=== PATIENT | female | born 1975 ===

== ENCOUNTER 2016-08-07 13:05 | Emergency (ER) | payer BC, MEDICAID, OTHER ==
[2016-08-07 13:10] VITALS: TEMP 98.5; BMI 36.6
[2016-08-07] MEDS ORDERED: Albuterol-Ipratrop 3 mg / 0.5 (3 ml) UD IH STA (13:29)
[2016-08-07] MEDS ORDERED: Sodium Chloride 0.9% 1,000 ML IV SCH (13:30)
[2016-08-07 13:49] LABS: URINE BILIRUBIN NEGATIVE (NEGATIVE); URINE BLOOD NEGATIVE (NEGATIVE); URINE GLUCOSE (UA) NEGATIVE (NEGATIVE); URINE KETONE NEGATIVE (NEGATIVE); URINE LEUKOCYTE ESTERASE NEGATIVE Leu/uL (NEGATIVE); URINE PROTEIN 30 mg/dL (<30 mg/dL)
[2016-08-07 13:51] LABS: URINE APPEARANCE CLEAR (CLEAR); URINE COLOR YELLOW (YELLOW)
[2016-08-07 13:55] LABS: ADD MANUAL DIFF? NO
[2016-08-07 13:59] LABS: BASO # 0.01 K/mm3 (0.0-2.0); BASO % 0.3 % (0.0-3.0); EOS % 0.7 % (1.5-5.0); GRAN % 36.8 % (50.0-68.0); HEMATOCRIT 40.4 % (36.0-48.0); LYMPH # 1.4 (1.2-3.4); LYMPH % 48.2 % (22.0-35.0); MEAN CELL VOLUME 85.6 fL (80.0-105.0); MEAN CORPUSCULAR HEMOGLOBIN 29.2 pg (25.0-35.0); MEAN CORPUSCULAR HGB CONC 34.2 g/dl (31.0-37.0); MEAN PLATELET VOLUME 8.7 fl (7.0-11.0); MONO # 0.4 (0.1-0.6); PLATELET COUNT 220 10^3/uL (120.0-450.0); RED CELL DISTRIBUTION WIDTH 13.1 % (11.5-14.5)
[2016-08-07 14:07] LABS: URINE AMORPHOUS SEDIMENT FEW; URINE BACTERIA MANY (NEG); URINE RBC 0 - 2 /hpf (0-2)
[2016-08-07 14:11] LABS: ALB/GLOB RATIO 1.1 (1.1-1.8); ALKALINE PHOSPHATASE 63 U/L (38-133); ALT/SGPT 72 U/L (7-56); AST/SGOT 59 U/L (15-39); BILIRUBIN,TOTAL 0.6 mg/dL (0.2-1.3); BLOOD UREA NITROGEN 11 mg/dL (7-21); CALCIUM 9.1 mg/dL (8.4-10.5); CARBON DIOXIDE 29 mmol/L (21-33); CHLORIDE 99 mmol/L (98-107); GFR AFRICAN-AMERICAN > 60; GLUCOSE,RANDOM 80 mg/dL (70-110); POTASSIUM 3.7 mmol/L (3.6-5.0); SODIUM 141 mmol/L (132-148); TOTAL PROTEIN 8.4 g/dL (5.8-8.3)
--- NOTE | 2016-08-07 14:12 | ED PDOC ---
Arrival/HPI - General Chief Complaint: Flu-like Symptoms Time Seen by Provider: 08/07/16 13:15 Historian: Patient - History of Present Illness Narrative History of Present Illness (Text): 08/07/16 13:20 A 40 year old female, whose past medical history includes arthritis and thyroid disease, presents to the emergency department complaining of generalized body aches, a productive cough, intermittent subjective fevers and a headache for the past 5 days. Patient reports yesterday she thought she was getting better but last night she developed chest tightness associated with shortness of breath. She states she felt as though she had "sputum stuck in her chest and just could not get it out." She notes this morning upon waking she still felt slightly short of breath, lightheaded, nausea and mild abdominal pain. Abdominal pain resolved after having a bowel movement but the other symptoms persist and therefore she wanted to come to the emergency department to get evaluated. Patient says she has mild throat burning when she coughs, some pain of the left side of the throat and has not been eating or drinking well but she denies any vomiting, diarrhea, or other complaints at this time. Patient mentions all three of her children are at home sick with the flu. PMD: Dr. Georges Time/Duration: Other (5 days) Symptom Onset: Sudden Symptom Course: Unchanged Quality: Other Activities at Onset: Rest Modifying Factors (Text): sick contacts Context: Home Past Medical History - Provider Review Nursing Documentation Reviewed: Yes - Infectious Disease Hx of Infectious Diseases: None - Endocrine/Metabolic Hx Hypothyroidism: Yes - Musculoskeletal/Rheumatological Hx Rheumatoid Arthritis: Yes - Psychiatric Hx Substance Use: No - Anesthesia Hx Anesthesia: No - Suicidal Assessment Feels Threatened In Home Enviroment: No Family/Social History - Physician Review Nursing Documentation Reviewed: Yes Family/Social History: Unknown Family HX Smoking Status: Never Smoked Hx Alcohol Use: No Hx Substance Use: No Allergies/Home Meds Allergies/Adverse Reactions: Allergies No Known Allergies Allergy (Unverified 08/23/12 15:38) Review of Systems - Review of Systems Constitutional: Fevers Eyes: absent: Vision Changes ENT: Sinus Congestion. absent: Rhinorrhea Respiratory: SOB, Cough Cardiovascular: Chest Pain Gastrointestinal: Abdominal Pain, Nausea, Appetite Changes. absent: Diarrhea, Vomiting Genitourinary Female: absent: Urine Output Changes Musculoskeletal: Myalgias. absent: Back Pain, Neck Pain Skin: absent: Rash Neurological: Headache, Other (lightheaded) Endocrine: absent: Polyuria Psychiatric: absent: Depression Physical Exam - Physical Exam Narrative Physical Exam (Text): Head: Atraumatic. Normocephalic. Eyes: PERRL. EOMI. Conjunctivae are not pale. ENT: Mucous membranes are moist and intact. Oropharynx is clear and symmetric. Mild erythema to the right ear canal. No pharyngeal erythema or exudates. Neck: Supple. Full ROM. No JVD. Small 1cm palpable lymph node to the left submandibular region, not firm or fluctuant. Neck is supple Cardiovascular: Regular rate. Regular rhythm. No murmurs, rubs, or gallops. Distal pulses are 2+ and symmetric. Pulmonary/Chest: No evidence of respiratory distress. Mild bilateral wheezing with rhonchi at the bases. No rales. Abdominal: Soft and non-distended. There is no tenderness. No rebound, guarding, or rigidity. No organomegaly. Good bowel sounds. Back: No CVA tenderness. Extremities: No edema. No cyanosis. No clubbing. Full range of motion in all extremities. No calf tenderness. Skin: Skin is warm and dry. No petechiae. No purpura. Neurological: Alert, awake, and oriented to person, place, time, and situation. Normal speech. Motor and sensory intact. No meningeal signs. Psychiatric: Good eye contact. Normal interaction, affect, and behavior. Vital Signs Reviewed: Yes Vital Signs Temp Pulse Resp BP Pulse Ox 08/07/16 16:45 73 14 118/75 97 08/07/16 15:06 77 16 117/79 100 08/07/16 13:10 98.5 F 75 18 134/74 99 Temperature: Afebrile Blood Pressure: Normal Pulse: Regular Respiratory Rate: Normal Appearance: Positive for: Non-Toxic, Comfortable Pain Distress: None Mental Status: Positive for: Alert and Oriented X 3 Medical Decision Making ED Course and Treatment: 08/07/16 13:20 Impression: A 40 year old female with flu like symptoms. Patient has sick contacts at home. Examination reveal patient is wheezing bilateral with some rhonchi. Patient also has mild erythema to the right ear and a swollen lymph node to the leftsub mandibular region. Differential Diagnosis include but are not limited to: Influenza vs. Viral Illness vs. Bronchitis vs. Pneumonia Plan: Will obtain Chest X-ray, lab work, urinalysis and Infleunza serology to rule out viral illness vs. influenza vs. bronchitis vs. pneumonia. Will give patient Duoneb and IV fluids for shortness of breath and lightheadedness. Prior Visits: Notes and results from previous visits were reviewed. The patient last presented to the emergency department on 06/25/16 for evaluation of abdominal pain. Progress Notes: Patient states all three of her children have testing positive for influenza over the past week and have been treated with Tamiflu. Patient reports she has had symptoms for several days, although patient reports feeling "better for a day" and then symptoms returned over the past 48 hours. 08/07/16 14:20 Patient serology is negative for Influenza A and B. 08/07/16 14:40 Chest X-ray: Creator : Caio Coleman MD COMPARISON: No prior. FINDINGS: LUNGS: No active pulmonary disease. PLEURA: No significant pleural effusion identified. No pneumothorax apparent. CARDIOVASCULAR: Normal. OSSEOUS STRUCTURES: No significant abnormalities. VISUALIZED UPPER ABDOMEN: Normal. OTHER FINDINGS: None. IMPRESSION: No active disease. 08/07/16 14:53 On reevaluation, wheezing has resolved. Patient pulse oxygen saturation on room air is 96%. Chest X-ray is unremarkable. Lab work shows elevated liver enzymes. On reexamination of abdomen the patient has tenderness with palpation. I suspect liver enzymes elevation is secondary to viral illness. Patient reports she feels dizzy, will continue IV hydration and reassess. I have discussed with her in length her abnormal WBC and liver enzymes, but she states she feels much better, and has no abdominal pain after serial exams. 08/07/16 16:16 On reevaluation, the patient reports she is no longer dizzy. Patient denies any headache, chest pain or shortness of breath. I have discussed the results and plan with the patient, who expresses understanding. Patient in agreement with plan to discharged home with Zithromax and Tamiflu. Despite remarkable chest xray will treat for possible component of bronchitis/pneumonia. I have discussed with the patient due to the uncertain of exact time of onset of symptoms patient does not need Tamiflu, but patient states symptoms have worsen in the past 48 hours and therefore we will discharge her with Tamiflu for possible influenza. Patient is stable for discharge. Patient was instructed to follow up with physician/clinic in 1-2 days or return if symptoms worsen or new concerning symptoms arise. - Lab Interpretations Lab Results: 08/07/16 13:54 08/07/16 13:54 Lab Results 08/07/16 14:16: Total Creatine Kinase 166 08/07/16 13:54: WBC 3.0 L, RBC 4.72, Hgb 13.8, Hct 40.4, MCV 85.6, MCH 29.2, MCHC 34.2, RDW 13.1, Plt Count 220, MPV 8.7, Gran % 36.8 L, Lymph % (Auto) 48.2 H, [place] % (Auto) 14.0 H, Eos % (Auto) 0.7 L, Baso % (Auto) 0.3, Gran # 1.10 L, Lymph # 1.4, [place] # 0.4, Eos # 0.0, Baso # 0.01 08/07/16 13:54: Sodium 141, Potassium 3.7, Chloride 99, Carbon Dioxide 29, Anion Gap 17, BUN 11, Creatinine 0.8, Est GFR ( Amer) > 60, Est GFR (Non- Af Amer) > 60, Random Glucose 80, Calcium 9.1, Total Bilirubin 0.6, AST 59 H, ALT 72 H, Alkaline Phosphatase 63, Total Protein 8.4 H, Albumin 4.4, Globulin 4.1, Albumin/Globulin Ratio 1.1 08/07/16 13:30: Urine Color Yellow, Urine Appearance Clear, Urine pH 6.0, Ur Specific [place] >= 1.030, Urine Protein 30 H, Urine Glucose (UA) Negative, Urine Ketones Negative, Urine Blood Negative, Urine Nitrate Negative, Urine Bilirubin Negative, Urine Urobilinogen 1.0 H, Ur Leukocyte Esterase Negative, Urine RBC 0 - 2, Urine WBC 1 - 3, Ur Epithelial Cells 6 - 8, Amorphous Sediment Few, Urine Bacteria Many, Urine HCG, Qual Negative 08/07/16 13:30: Influenza Typ A,B (EIA) Negative for flu a/b I have reviewed the lab results: Yes - RAD Interpretation Radiology Orders: 08/07/16 13:29 CHEST TWO VIEWS (PA/LAT) [RAD] Stat - Medication Orders Current Medication Orders: Discontinued Medications Albuterol/Ipratropium (Duoneb 3 Mg/0.5 Mg (3 Ml) Ud) 3 ml IH STAT STA Stop: 08/07/16 13:30 Last Admin: 08/07/16 13:49 Dose: 3 ml Sodium Chloride (Sodium Chloride 0.9%) 1,000 mls @ 100 mls/hr IV .Q10H FRIEDA Last Admin: 08/07/16 13:49 Dose: 100 mls/hr Sodium Chloride (Sodium Chloride 0.9%) 1,000 mls @ 1,000 mls/hr IV .Q1H STA Stop: 08/07/16 15:50 Last Admin: 08/07/16 14:52 Dose: 1,000 mls/hr - Scribe Statement The provider has reviewed the documentation as recorded by the Mercyibsusan Arias Provider Scribe Attestation: All medical record entries made by the Scribe were at my direction and personally dictated by me. I have reviewed the chart and agree that the record accurately reflects my personal performance of the history, physical exam, medical decision making, and the department course for this patient. I have also personally directed, reviewed, and agree with the discharge instructions and disposition. Disposition/Present on Arrival - Present on Arrival Any Indicators Present on Arrival: No History of DVT/PE: No History of Uncontrolled Diabetes: No Urinary Catheter: No History of Decub. Ulcer: No History Surgical Site Infection Following: None - Disposition Have Diagnosis and Disposition been Completed?: Yes Diagnosis: Influenza, Bronchitis, Elevated liver enzymes Disposition: HOME/ ROUTINE Disposition Time: 16:16 Patient Plan: Discharge Condition: GOOD Discharge Instructions (ExitCare): Influenza (ED), Acute Bronchitis (ED) Additional Instructions: Rest. Drink fluids. Take antibiotics as directed. For any fever, any shortness of breath, ANY ABDOMINAL PAIN, ANY nausea or vomiting, any numbness or weakness , any unsteadiness, any headaches, any neck pain or swelling, any dizziness, any persistent or worsening of symptoms, get rechecked. Your liver enzymes are elevated today. This requires re-evaluation by your physician, as well as low white blood count. For any fever or pain get rechecked immediately. Take antibiotics as directed. Take Tamiflu as directed., You must get rechecked in 1-2 days. Prescriptions: Oseltamivir Phosphate [Tamiflu] 75 mg PO BID #10 capsule Azithromycin [Zithromax] 250 mg PO DAILY #6 tab Referrals: Mavis Real MD [Primary Care Provider] - Follow up with primary Forms: WORK NOTE
--- NOTE | 2016-08-07 14:40 | RAD ---
HISTORY: fever, cough COMPARISON: No prior. TECHNIQUE: Chest PA and lateral FINDINGS: LUNGS: No active pulmonary disease. PLEURA: No significant pleural effusion identified. No pneumothorax apparent. CARDIOVASCULAR: Normal. OSSEOUS STRUCTURES: No significant abnormalities. VISUALIZED UPPER ABDOMEN: Normal. OTHER FINDINGS: None. IMPRESSION: No active disease.
[2016-08-07] MEDS ORDERED: Sodium Chloride 0.9% 1,000 ML IV STA (14:51)
[2016-08-07 16:46] VITALS: BP 118/75; PULSE 73; RESP 14; O2SAT 97
--- NOTE | 2016-08-07 18:06 | CARD ---
APPROVED REPORT EKG Measurement Heart [id number] <Conclusion> Normal sinus rhythm Normal ECG
== END 2016-08-07 16:54 | disposition home or self-care (01) ==
LOC: ED 13:05
DX: J11.1 Influenza due to unidentified influenza virus with other respiratory manifestations (principal); R74.8 Abnormal levels of other serum enzymes; J40 Bronchitis, not specified as acute or chronic
CPT/HCPCS: 71020; 80053; 81001; 82550; 84703; 85025; 87804; 93005; 96360; 99284; J7040